=== PATIENT | female | born 1950 | race Caucasian/White ===

== ENCOUNTER 2017-10-13 12:09 | Emergency (ER) | payer MEDICARE, MEDICAID ==
[~2017-10-13] VITALS: Ht 167.6 cm; Wt 71.7 kg
[~2017-10-13 12:09] MED LIST: ADVAIR HFA 1112 UNIT INH; ALPRAZOLAM 0.50.5 M1 PO; ALPRAZOLAM PO; AMBIEN 10 MG TA10 MG PO; AVELOX 400 MG400 M1 PO; BACTRIM DS TAB1 EACH PO; CARAFATE 1 GM TA1 G1 PO; CHLORPROMAZINE10 M1 PO; CHLORPROMAZINE100 MG PO; CYMBALTA60 MG PO; DUONEB 2.5-0.5 M3 ML; DUONEB 2.5-0.5 M3 ML INH; EFFEXOR XR150 MG PO; EFFEXOR XR75 MG PO; ESZOPICLONE3 MG PO; LEVAQUIN 500 M500 M2 PO; MOBIC7.5 MG PO; NORCO 10-325 T1 EACH PO; OXCARBAZEPINE600 MG PO; PAIN & FEVER325 MG PO; PREDNISONE 10 M10 M1; PROMETHAZINE HC25 M1 PO; PROTONIX40 M2 PO; PROZAC20 MG PO; PULMICORT0.5 MG/21 INH; PYRIDIUM200 M1 PO; SEROQUEL 50 MG50 MG PO; STERAPRED5 MG; TRAZODONE 150150 M1 PO; TYLENOL EX-STR500 M2 PO; UNKNOWN PSYCH MED; XANAX XR1 MG PO; XANAX1 MG PO; ZOFRAN4 MG PO
[2017-10-13] MEDS ORDERED: XANAX1 MG PO ×2 (12:26)
[2017-10-13] MEDS ORDERED: SEROQUEL 50 MG50 M1 PO (12:29)
[2017-10-13] MEDS ORDERED: LUNESTA3 MG PO (12:30)
[2017-10-13] MEDS ORDERED: FEOSOL325 M1 PO (12:31)
[2017-10-13] MEDS ORDERED: ZANTAC25 MG/1 ML PO (12:31)
[2017-10-13] MEDS ORDERED: ONDANSETRON HCL4 M2 PO (12:32)
[2017-10-13] MEDS ORDERED: LYRICA 75 MG CA75 MG PO (12:32)
[2017-10-13] MEDS ORDERED: AZITHROMYCIN 2250 MG PO (14:18)
[2017-10-13 14:39] VITALS: BP 144/57
== END 2017-10-13 14:40 | disposition home or self-care (01) ==
LOC: M.ERS 12:09
DX: S01.91XA Laceration without foreign body of unspecified part of head, initial encounter (principal); S20.212A Contusion of left front wall of thorax, initial encounter; J40 Bronchitis, not specified as acute or chronic; J44.9 Chronic obstructive pulmonary disease, unspecified; F32.9 Major depressive disorder, single episode, unspecified; F41.9 Anxiety disorder, unspecified; G40.909 Epilepsy, unspecified, not intractable, without status epilepticus; Z87.440 Personal history of urinary (tract) infections; Z86.59 Personal history of other mental and behavioral disorders; Z87.19 Personal history of other diseases of the digestive system; Z98.890 Other specified postprocedural states; Z88.5 Allergy status to narcotic agent; Z88.8 Allergy status to other drugs, medicaments and biological substances; Z87.891 Personal history of nicotine dependence; W18.39XA Other fall on same level, initial encounter; Y93.89 Activity, other specified; Y92.128 Other place in nursing home as the place of occurrence of the external cause; Y99.8 Other external cause status

== ENCOUNTER 2017-10-18 17:08 | Inpatient (IN) | payer MEDICARE, MEDICAID ==
[~2017-10-18] VITALS: Ht 165.1 cm; Wt 63.5 kg
[2017-10-18 17:08] VITALS: BP 153/70
[~2017-10-18 17:08] MED LIST changes: +AZITHROMYCIN 2250 MG PO; +FEOSOL325 M1 PO; +LUNESTA3 MG PO; +LYRICA 75 MG CA75 MG PO; +ONDANSETRON HCL4 M2 PO; +SEROQUEL 50 MG50 M1 PO; +ZANTAC25 MG/1 ML PO
[2017-10-18] MEDS ORDERED: SEROQUEL 50 MG50 MG PO (17:23)
[2017-10-18 17:44] LABS: ABSOLUTE EOSINOPHILS 0.3 thou/uL (0.0-0.7); ABSOLUTE LYMPHOCYTES 0.8 thou/uL (0.8-5.3); ABSOLUTE MONOCYTES 0.3 thou/uL (0.0-1.2); BASOPHILS 0.1 %; EOSINOPHILS 8.6 %; HEMATOCRIT 32.6 % (37.0-47.0); HEMOGLOBIN 11.1 gm/dL (12.0-15.0); LYMPHOCYTES 23.4 %; MCH 32.1 pg (26.0-34.0); MCHC 34.1 g/dL (28.0-37.0); MCV 94.3 fL (80.0-100.0); MONOCYTES 9.8 %; MPV 6.6 fl. (7.2-11.1); NUCLEATED RBCS 0 /100WBC; PLATELET COUNT* 218 thou/uL (150-400); POLYS 58.1 %; RBC 3.46 mil/uL (4.20-5.00); RDW-CV 12.3 % (10.5-14.5); WBC 3.4 thou/uL (4.0-11.0)
[2017-10-18 17:54] LABS: ANION GAP 6 mmol/L (7-16); BUN 12 mg/dL (7-18); CALCIUM 8.6 mg/dL (8.5-10.1); CHLORIDE 101 mmol/L (98-107); CO2 32 mmol/L (21-32); CREATININE 0.7 mg/dL (0.6-1.3); GLUCOSE 87 mg/dL (70-99); SODIUM 139 mmol/L (136-145)
[2017-10-18 18:05] LABS: ALBUMIN 3.1 g/dL (3.4-5.0); ALKALINE PHOSPHATASE 99 U/L (46-116); NT-PRO BRAIN NAT PEPTIDE 185 pg/mL (<300); SGOT 17 U/L (15-37); SGPT 22 U/L (30-65); TOTAL BILIRUBIN 0.2 mg/dL (<0.1-1.0); TOTAL PROTEIN 6.7 g/dL (6.4-8.2); TROPONIN-I LEVEL <0.06 ng/mL (<0.06)
[2017-10-18 19:02] LABS: BE 1.4 mmol/L (-2 to +3); HCO3 26.2 mmol/L (22.0-26.0); PCO2 42.4 mmHg (35.0-45.0); PO2 96.1 mmHg (75.0-100.0); pH 7.409 (7.340-7.450)
[2017-10-18 20:16] VITALS: BP 142/73
[2017-10-18 20:20] VITALS: BP 154/75
[2017-10-18 20:23] LABS: INFLUENZA A ANTIGEN None Detected (None Detect); INFLUENZA B ANTIGEN None Detected (None Detect)
[2017-10-19 04:51] LABS: HEMATOCRIT 31.2 % (37.0-47.0); HEMOGLOBIN 10.6 gm/dL (12.0-15.0); MCV 94.2 fL (80.0-100.0); MPV 7.1 fl. (7.2-11.1); RBC 3.31 mil/uL (4.20-5.00); RDW-CV 11.7 % (10.5-14.5); WBC 3.1 thou/uL (4.0-11.0)
[2017-10-19 04:54] LABS: BE -0.8 mmol/L (-2 to +3); HCO3 24.5 mmol/L (22.0-26.0); PCO2 43.1 mmHg (35.0-45.0); PO2 107.2 mmHg (75.0-100.0); pH 7.373 (7.340-7.450)
[2017-10-19 05:16] LABS: ALBUMIN 2.9 g/dL (3.4-5.0); ALKALINE PHOSPHATASE 94 U/L (46-116); ANION GAP 11 mmol/L (7-16); BUN 12 mg/dL (7-18); CALCIUM 8.4 mg/dL (8.5-10.1); CHLORIDE 103 mmol/L (98-107); CO2 24 mmol/L (21-32); CREATININE 0.7 mg/dL (0.6-1.3); GLUCOSE 163 mg/dL (70-99); MAGNESIUM 1.7 mg/dL (1.8-2.4); POTASSIUM 4.2 mmol/L (3.5-5.1); SGOT 16 U/L (15-37); SGPT 20 U/L (30-65); SODIUM 138 mmol/L (136-145)
[2017-10-19 05:28] LABS: TOTAL BILIRUBIN < 0.1 mg/dL (<0.1-1.0)
[2017-10-19 08:11] VITALS: BP 138/66
[2017-10-19 13:05] VITALS: BP 137/60
--- NOTE | 2017-10-19 13:47 | EKG ---
[place] [address] ELECTROCARDIOGRAM REPORT Name: PHYLLIS YANES Room: [address] ADM IN .R.#: [id number] Admission: 10/18/17 Attend Phys: Bethanie Billings MD Discharge: Date of : 46 Report #: [id number] THIS REPORT FOR: //name// [facility] ED Test Date: 2017-10-18 Test Time: 17:58:56 Pat Name: PHYLLIS YANES Department: Room: [facility] Gender: F Seat Joiner: Ammy TOBIN : 1950 Requested By: Vineet Lopez Order Number: [id number] MD: Jakob Kim Measurements Intervals [place] Rate: 74 P: 51 [place]: 177 QRS: -11 QRSD: 86 T: 20 QT: 381 QTc: 423 Interpretive Statements Sinus rhythm Consider anterior infarct No previous ECG available for comparison Electronically Signed On 10-19-2017 13:47:13 MANAGER INPATIENT by Jakob Kim [email or web address] <ELECTRONICALLY SIGNED> By: Jakob Kim MD, [facility] 10/19/17 1347 1758 57 Jakob Kim MD, [facility]ACC /EPI
--- NOTE | 2017-10-19 13:53 | EKG ---
[place] [address] ELECTROCARDIOGRAM REPORT Name: SHAYLAHayleePHYLLIS Domo Room: [address] ADM IN .R.#: [id number] Admission: 10/18/17 Attend Phys: Bethanie Billings MD Discharge: Date of : 46 Report #: [id number] THIS REPORT FOR: //name// [facility] Test Date: 2017-10-19 Test Time: 11:03:48 Pat Name: PHYLLIS YANES Department: Room: [address] Gender: F Manager Corporate: 27 : 1950 Requested By: Bethanie Billings Order Number: [id number] Rehana MD: Jakob Kim Measurements Intervals [place] Rate: 97 P: 60 [place]: 194 QRS: -12 QRSD: 86 T: 19 QT: 351 QTc: 446 Interpretive Statements Sinus rhythm LVH by voltage No previous ECG available for comparison Electronically Signed On 10-19-2017 13:53:12 MANAGER PART by Jakob Kim [email or web address] <ELECTRONICALLY SIGNED> By: Jakob Kim MD, [facility] 10/19/17 1353 1103 1103 Jakob Kim MD, [facility] /EPI
[2017-10-19 17:25] VITALS: BP 151/73
[2017-10-19 20:30] VITALS: BP 158/76
[2017-10-20] VITALS: BP 170/73
[2017-10-20 06:19] LABS: HEMATOCRIT 31.2 % (37.0-47.0); HEMOGLOBIN 10.9 gm/dL (12.0-15.0); MCHC 34.7 g/dL (28.0-37.0); MCV 94.9 fL (80.0-100.0); MPV 7.2 fl. (7.2-11.1); NUCLEATED RBCS 0 /100WBC; PLATELET COUNT* 244 thou/uL (150-400); RBC 3.29 mil/uL (4.20-5.00); RDW-CV 12.2 % (10.5-14.5); WBC 7.2 thou/uL (4.0-11.0)
[2017-10-20 06:33] LABS: CALCIUM 8.8 mg/dL (8.5-10.1); CREATININE 0.7 mg/dL (0.6-1.3); MAGNESIUM 2.2 mg/dL (1.8-2.4); POTASSIUM 4.1 mmol/L (3.5-5.1); TOTAL BILIRUBIN 0.2 mg/dL (<0.1-1.0); TOTAL PROTEIN 6.6 g/dL (6.4-8.2)
[2017-10-20 07:30] LABS: ABSOLUTE LYMPHOCYTES 0.3 thou/uL (0.8-5.3); ABSOLUTE MONOCYTES 0.1 thou/uL (0.0-1.2); ABSOLUTE NEUTROPHILS 6.8 thou/uL (1.6-8.1); PLATELET ESTIMATE ADEQUATE
[2017-10-20 09:06] VITALS: BP 169/89
[2017-10-20 15:45] VITALS: BP 180/84
[2017-10-20 18:17] LABS: URINE BILIRUBIN NEGATIVE (Negative); URINE BLOOD TRACE (Negative); URINE CLARITY CLEAR; URINE COLOR YELLOW; URINE GLUCOSE-RANDOM NEGATIVE (Negative); URINE KETONES NEGATIVE (Negative); URINE LEUKOCYTES-REFLEX NEGATIVE (Negative); URINE NITRITE-REFLEX NEGATIVE (Negative); URINE PROTEIN NEGATIVE (Negative); URINE UROBILINOGEN 0.2 E.U./dl (0.2-1.0)
[2017-10-20 20:10] VITALS: BP 171/74
[2017-10-21] VITALS: BP 174/73
[2017-10-21 04:00] VITALS: BP 176/91
[2017-10-21 09:45] VITALS: BP 170/82
[2017-10-21 19:03] VITALS: BP 148/79
[2017-10-21 20:05] VITALS: BP 177/84
[2017-10-22] VITALS: BP 135/78
[2017-10-22 09:54] VITALS: BP 173/79
[2017-10-22 17:00] VITALS: BP 141/69
[2017-10-23 11:12] VITALS: BP 137/72
[2017-10-23 16:00] VITALS: BP 137/61
[2017-10-23 23:37] VITALS: BP 124/55
[2017-10-24 02:06] LABS: ADENOVIRUS Negative (Negative); INFLUENZA A Negative (Negative); INFLUENZA B Negative (Negative); METAPNEUMOVIRUS Negative (Negative); PARAINFLUENZA 1 Negative (Negative); PARAINFLUENZA 2 Negative (Negative); PARAINFLUENZA 3 Negative (Negative); RHINOVIRUS Negative (Negative); RSV A Negative (Negative); RSV B Negative (Negative)
[2017-10-24 07:55] VITALS: BP 169/93
[2017-10-24 16:00] VITALS: BP 149/64
[2017-10-25 00:32] VITALS: BP 163/65
[2017-10-25 07:30] VITALS: BP 166/82
[2017-10-25] MEDS ORDERED: LEVAQUIN 500 M500 M2 PO (12:16)
[2017-10-25] MEDS ORDERED: NORCO 10-325 T1 EACH PO (12:16)
[2017-10-25] MEDS ORDERED: XANAX1 MG PO ×2 (12:16)
[2017-10-25] MEDS ORDERED: AMLODIPINE BESYL5 M1 PO (12:16)
[2017-10-25] MEDS ORDERED: LIDOPATCH1 EACH TOP (12:16)
[2017-10-25] MEDS ORDERED: PREDNISONE 20 M20 MG PO (12:18)
[2017-10-25 13:36] VITALS: BP 166/82
--- NOTE | 2017-10-25 16:13 | CON ---
[address] [address] CONSULTATION Name: PHYLLIS YANES Room: [address] IN .R.#: [id number] Admission: 10/18/17 Attend Phys: Bethanie Billings MD Discharge: Date of : 46 Report #: [id number] THIS REPORT FOR: //name// CC: Bethanie Da Silva DATE OF SERVICE: 10/21/2017 INDICATION FOR CONSULT: Abdominal pain. The patient also has anemia of iron deficiency. HISTORY OF PRESENT ILLNESS: This is a 67-year-old female who was admitted to hospital with diagnosis of pneumonia. The patient reports that she has been having abdominal pain, which is periumbilical and radiates to the back. She was constipated until recently when she started having loose stools. Since hospitalization she has been started on 3 different antibiotics and blood test results revealed that she has iron-deficiency anemia. She does not believe that she has ever had any endoscopic evaluation in the past. The patient also has a small kidney stone and trace of blood in her urine. PAST MEDICAL HISTORY: Significant for history of anxiety, iron-deficiency anemia, GERD, depression, COPD, back and knee surgeries, hysterectomy, appendectomy, benign breast biopsies, emphysema, UTI and gastritis. ALLERGIES: SIGNIFICANT TO MORPHINE, CODEINE AND ____. MEDICATIONS: Please refer to hospital MAR. SOCIAL HISTORY: The patient lives in a assisted facility and is visited by her son routinely. She reports that she used to smoke until 3 weeks ago and used to smoke about a pack and a half, but has quit since. She denies use of alcohol. FAMILY HISTORY: Noncontributory. LABORATORIES: Reveal sodium of 138 and potassium 4.1. BUN is 15 and creatinine 0.7. Glucose 138. AST is 22, ALT 33 and alk phos 94. Iron saturation is 3%. WBC 7.2, hemoglobin 10.9 and platelet is 244. IMAGING: Abdominal ultrasound and CT were obtained. Ultrasound shows normal gallbladder with mild dilation of the common bile duct to 9 mm. This was also shown in the CT. ASSESSMENT AND PLAN: The patient with pneumonia who presents to hospital and currently on antibiotics. She also has chronic constipation, [place] [address] CONSULTATION Name: PHYLLIS YANES Room: [address] IN [facility]#: [id number] Admission: 10/18/17 Attend Phys: Bethanie Billings MD Discharge: Date of : 46 Report #: [id number] having diarrhea since yesterday. We will monitor the diarrhea, and if persists, we will check for C. diff. In reference to her iron-deficiency anemia, she needs to have upper and lower endoscopy either prior to discharge or shortly after that. In reference to her 9 mm common bile duct dilatation, we will recommend either an MRI or an US. We will consider this as outpatient. <ELECTRONICALLY SIGNED> By: Lilly Dc MD 10/25/17 1613 1110 0004Lilly Dc MD /nt
== END 2017-10-25 16:45 | disposition home health service (06) | DRG 177 ==
LOC: M.ERS 17:08 → M.3W 18:30 → M.TBA-ER 18:30 → M.3W 20:24
PROVIDERS: Emergency Medicine Emergency Medical Services; ADMIT Internal Medicine
DX: J15.6 Pneumonia due to other Gram-negative bacteria (principal); J96.21 Acute and chronic respiratory failure with hypoxia; J44.0 Chronic obstructive pulmonary disease with (acute) lower respiratory infection; R65.10 Systemic inflammatory response syndrome (SIRS) of non-infectious origin without acute organ dysfunction; J44.1 Chronic obstructive pulmonary disease with (acute) exacerbation; I10 Essential (primary) hypertension; F32.9 Major depressive disorder, single episode, unspecified; F20.9 Schizophrenia, unspecified; G40.909 Epilepsy, unspecified, not intractable, without status epilepticus; R07.81 Pleurodynia; K57.90 Diverticulosis of intestine, part unspecified, without perforation or abscess without bleeding; F41.9 Anxiety disorder, unspecified; K59.09 Other constipation; J40 Bronchitis, not specified as acute or chronic; Z88.5 Allergy status to narcotic agent; Z88.8 Allergy status to other drugs, medicaments and biological substances; Z79.899 Other long term (current) drug therapy; Z87.891 Personal history of nicotine dependence

== ENCOUNTER 2018-02-24 10:27 | Inpatient (IN) | payer MEDICARE, MEDICAID ==
[2018-02-24] VITALS (13 sets, daily range): BP systolic 93–137; BP diastolic 43–103
[~2018-02-24] VITALS: Ht 165.1 cm; Wt 77.1 kg
[~2018-02-24 10:27] MED LIST changes: +AMLODIPINE BESYL5 M1 PO; +LIDOPATCH1 EACH TOP; +PREDNISONE 20 M20 MG PO
[2018-02-24] MEDS ORDERED: COLACE100 MG PO (10:50)
[2018-02-24] MEDS ORDERED: LYRICA 75 MG CA75 MG PO (10:51)
[2018-02-24] MEDS ORDERED: MUCINEX600 MG PO (10:51)
[2018-02-24 10:52] LABS: HEMATOCRIT 38.2 % (37.0-47.0); HEMOGLOBIN 12.7 gm/dL (12.0-15.0); MCH 31.3 pg (26.0-34.0); MCHC 33.1 g/dL (28.0-37.0); MCV 94.7 fL (80.0-100.0); MPV 7.3 fl. (7.2-11.1); NUCLEATED RBCS 0 /100WBC; PLATELET COUNT* 255 thou/uL (150-400); RBC 4.04 mil/uL (4.20-5.00); RDW-CV 12.5 % (10.5-14.5); WBC 23.8 thou/uL (4.0-11.0)
[2018-02-24] MEDS ORDERED: MILK OF MA2400 MG/10 PO (10:52)
[2018-02-24] MEDS ORDERED: MINTOX SUSPENS355 ML PO (10:53)
[2018-02-24] MEDS ORDERED: BENTYL 10 MG CA10 M1 PO (10:53)
[2018-02-24 11:02] LABS: INR 1.2
[2018-02-24 11:19] LABS: ABSOLUTE MONOCYTES 1.4 thou/uL (0.0-1.2); ABSOLUTE NEUTROPHILS 21.4 thou/uL (1.6-8.1); PLATELET ESTIMATE ADEQUATE
[2018-02-24 11:32] LABS: URINE BLOOD 3+ (Negative); URINE CLARITY CLEAR; URINE COLOR STRAW; URINE GLUCOSE-RANDOM NEGATIVE (Negative); URINE KETONES 1+ (Negative); URINE LEUKOCYTES-REFLEX NEGATIVE (Negative); URINE NITRITE-REFLEX NEGATIVE (Negative); URINE PROTEIN 1+ (Negative); URINE SPECIFIC GRAVITY 1.025 (1.005-1.030); URINE UROBILINOGEN 0.2 E.U./dl (0.2-1.0)
[2018-02-24 11:33] LABS: URINE BILIRUBIN 1+ (Negative)
[2018-02-24 11:36] LABS: ICTOTEST (BILI CONFIRMATORY) Negative (Negative)
[2018-02-24 11:42] LABS: MUCUS >6 Heavy strn/LPF (None Seen)
[2018-02-24 11:43] LABS: HYALINE CASTS 4-10 Moderate /LPF (None Seen); SQUAMOUS 4-10 Moderate /LPF (0-3)
[2018-02-24 11:44] LABS: CRYSTALS None Seen /LPF (None Seen); URINE RBC 3-10 Few /HPF (0-2); URINE WBC-REFLEX 6-15 Few /HPF (0-5)
[2018-02-24 16:06] LABS: APTT 42.6 Seconds (25.0-31.3); INR 1.3; PROTIME 12.4 Seconds (9.20-11.50)
[2018-02-24 16:11] LABS: ALBUMIN 2.2 g/dL (3.4-5.0); CALCIUM 7.3 mg/dL (8.5-10.1); CREATININE 0.7 mg/dL (0.6-1.3); MAGNESIUM 1.8 mg/dL (1.8-2.4); PHOSPHORUS* 2.7 mg/dL (2.5-4.9); POTASSIUM 3.4 mmol/L (3.5-5.1); TOTAL BILIRUBIN 0.3 mg/dL (<0.1-1.0); TOTAL PROTEIN 5.5 g/dL (6.4-8.2)
--- NOTE | 2018-02-24 19:33 | NUR ---
PT ARRIVED FROM ED AT 1320 VIA CART FROM ED. PT IS ALERT TO SELF ONLY AND VERY CONFUSED. ASSESSMENT CHARTED. VSS. SEPSIS SCREEN NEGATIVE AT THIS TIME. DPOA JASON CONTACTED AND REQUESTED THAT PATIENT BE A FULL CODE UNTIL HE IS ABLE TO TALK WITH THE PATIENT. NO COMPLAINTS OF NAUSEA/VOMITTING. PT ATE 25% OF DINNER AND KEEPS VOICING THAT SHE IS TIRED. BED ALARM ON PATIENT IS IMPULSIVE.
[2018-02-25] VITALS (16 sets, daily range): BP systolic 105–146; BP diastolic 47–654
[2018-02-25 03:49] LABS: HEMATOCRIT 33.4 % (37.0-47.0); HEMOGLOBIN 11.3 gm/dL (12.0-15.0)
[2018-02-25 03:50] LABS: ABSOLUTE LYMPHOCYTES 0.4 thou/uL (0.8-5.3); ABSOLUTE MONOCYTES 1.2 thou/uL (0.0-1.2); ABSOLUTE NEUTROPHILS 19.4 thou/uL (1.6-8.1); BASOPHILS 0.2 %; LYMPHOCYTES 2.1 %; MCH 31.8 pg (26.0-34.0); MCHC 33.7 g/dL (28.0-37.0); MCV 94.2 fL (80.0-100.0); MONOCYTES 5.6 %; MPV 7.3 fl. (7.2-11.1); NUCLEATED RBCS 0 /100WBC; PLATELET COUNT* 209 thou/uL (150-400); POLYS 92.1 %; RBC 3.54 mil/uL (4.20-5.00); RDW-CV 13.1 % (10.5-14.5)
[2018-02-25 04:07] LABS: CREATININE 0.6 mg/dL (0.6-1.3); POTASSIUM 3.9 mmol/L (3.5-5.1)
--- NOTE | 2018-02-25 14:42 | EKG ---
[place] [address] ELECTROCARDIOGRAM REPORT Name: PHYLLIS YANES Room: [address] IN [facility]#: [id number] Admission: 02/24/18 Attend Phys: Shine Barbosa Discharge: Date of : 46 Report #: [id number] THIS REPORT FOR: //name// [facility] ED Test Date: 2018-02-24 Test Time: 10:34:46 Pat Name: PHYLLIS YANES Department: Room: Gender: F Lease Picker: [place] : 1950 Requested By: Lakia Hussein Order Number: [id number] MD: Roberth Brian Measurements Intervals [place] Rate: 93 P: -6 [place]: 149 QRS: -18 QRSD: 74 T: 8 QT: 446 QTc: 555 Interpretive Statements Sinus rhythm Inferior infarct, old Prolonged QT interval nonspecific t wave changes Baseline wander in lead(s) V1 Compared to ECG 10/19/2017 11:03:48 Prolonged QT interval now present Left ventricular hypertrophy no longer present Electronically Signed On 02-25-2018 14:41:54 CDT by Roberth Brian [email or web address] <ELECTRONICALLY SIGNED> By: Roberth Brian MD, [facility] 02/25/18 1441 1034 1034 Roberth Brian MD, [facility] /EPI
--- NOTE | 2018-02-25 18:59 | NUR ---
PT ALERT TO SELF AND PLACE ONLY. ASSESSMENT CHARTED. VSS. FECAL MANAGEMENT SYSTEM INITIATED DUE TO FREQUENT LIQUID STOOL AND SKIN BREAK DOWN. PT COMPLAINS OF ABDOMINAL PAIN AND NAUSEA INTERMITTENTLY ALL DAY. ABDOMINAL ULTRASOUND DONE. PT UP TO BEDSIDE COMMODE AND WAS VERY UNSTEADY AND UNABLE TO HOLD HER OWN WEIGHT UP. PT DID NOT EAT ANYTHING TODAY. SHE HAD 3 120 ML PEPSI'S BUT OTHERWISE SAID SHE DOES NOT HAVE AN APPETITE.
[2018-02-26] VITALS (24 sets, daily range): BP systolic 94–126; BP diastolic 50–84
[2018-02-26 04:06] LABS: HEMATOCRIT 46.2 % (37.0-47.0); MCH 30.9 pg (26.0-34.0); MCHC 32.5 g/dL (28.0-37.0); MCV 95.2 fL (80.0-100.0); MPV 7.8 fl. (7.2-11.1); NUCLEATED RBCS 0 /100WBC; PLATELET COUNT* 265 thou/uL (150-400); RBC 4.86 mil/uL (4.20-5.00); RDW-CV 13.4 % (10.5-14.5)
[2018-02-26 04:23] LABS: CALCIUM 7.6 mg/dL (8.5-10.1); CREATININE 1.1 mg/dL (0.6-1.3); POTASSIUM 4.1 mmol/L (3.5-5.1)
[2018-02-26 04:43] LABS: WBC 40.1 thou/uL (4.0-11.0)
[2018-02-26 08:03] LABS: ABSOLUTE MONOCYTES 0.4 thou/uL (0.0-1.2); ABSOLUTE NEUTROPHILS 37.7 thou/uL (1.6-8.1)
[2018-02-26 08:04] LABS: PLATELET ESTIMATE ADEQUATE
[2018-02-26 08:07] LABS: MACROCYTES Occasional; MICROCYTES Occasional
--- NOTE | 2018-02-26 23:31 | NUR ---
paged dr albarran and reported sustained heart rate in 140's. reported respirations in 30's and oral temp 98.4. reported cvp at 5, urine output for day shift 150. recieved orders for stat lactic acid, fluid bolus and EKG.
[2018-02-27] VITALS (36 sets, daily range): BP systolic 47–212; BP diastolic 11–155
--- NOTE | 2018-02-27 00:54 | NUR ---
REPORTED ELEVATED LACTIC ACID TO DR JIM. RECIEVED ADDITIONAL ORDERS.
--- NOTE | 2018-02-27 03:46 | NUR ---
PAGED DR JIM AND REPORTED SUSTAINED HEART RATE 140-142, BLOOD PRESSURE 109/75, RESPIRATIONS 33, ORAL TEMP 98.4, O2 SAT 96 - 97%. REPORTED TOTAL URINE OUTPUT 50 ML'S SINCE SHIFT CHANGE. NO ORDERS RECIEVED.
[2018-02-27 04:41] LABS: CALCIUM 7.6 mg/dL (8.5-10.1); POTASSIUM 5.3 mmol/L (3.5-5.1)
[2018-02-27 04:49] LABS: CREATININE 2.1 mg/dL (0.6-1.3)
--- NOTE | 2018-02-27 05:29 | NUR ---
PT'S BLOOD PRESSURE 61/25. PT COLD, CLAMY AND DIAPHORETIC. PT MINIMALLY RESPONSIVE. UNABLE TO OBTAIN O2 SAT, SENSOR CHANGED X3. STILL UNABLE TO GET WAVE FORM OR SAT. PT PLACING PT ON BIPAP AT THIS TIME AND ONTAINING ABG. PT'S SON NOTIFIED AND EN ROUTE TO HOSPITAL.
[2018-02-27 06:07] LABS: BE -15.5 mmol/L (-2 to +3); PCO2 20.6 mmHg (35.0-45.0)
[2018-02-27 06:08] LABS: HCO3 8.8 mmol/L (22.0-26.0); PO2 158.8 mmHg (75.0-100.0)
--- NOTE | 2018-02-27 06:38 | NUR ---
REPORTED CRITICAL SERUM CO2 AND ABG RESULTS. PT PLACED ON BIPAP PER RT. RECIEVED ORDERS TO GIVE 1 AMP SODIUM BICARB AND CHANGE IV FLUIDS. REPORTED CORE TEMP. RECIEVED ORDERS FOR TYLENOL SUPPOSITORY.
--- NOTE | 2018-02-27 10:20 | NUR ---
PT KNOWN TO CASE MGT FROM PREVIOUS ADMISSION. PT IS FROM [facility]. PT DOING POORLY THIS MORNING, SON IS HERE AND TALKING WITH THE DOCTOR. PT CURRENTLY ON BIPAP, SON DOES WANT PT INTUBATED IF NEEDED. DR. BOB AND NURSING AWARE OF SON'S DECISION ABOUT INTUBATION.
--- NOTE | 2018-02-27 11:30 | NUR ---
PATIENT WAS INTUABTED PER FAMILY REQUEST AND DR RECOMMENDATIONS, NOT WAKING UP TO PROTECT AIRWAY. SUCCESSFUL INTUBATION, UNABLE TO PLACE AN ARTERIAL LINE AT THIS TIME, MANY ATTEMPTS BY ANESTHIA, SURGERY CALLED TO SEE IF THEY CAN PLACE. PATIENT NOT SEDATED AND UNRESPONSIVE AT THIS TIME. PRESSORS STARTED ALONG WITH FLUID BOLUSES PER DR ORDERS. FAMILY UPDATED. WILL CONTINUE TO MONITOR.
[2018-02-27 13:15] LABS: ALBUMIN 1.7 g/dL (3.4-5.0); DIRECT BILIRUBIN 0.1 mg/dL (<0.1-0.3); TOTAL BILIRUBIN 0.2 mg/dL (<0.1-1.0); TOTAL PROTEIN 4.4 g/dL (6.4-8.2)
[2018-02-27 13:54] LABS: CALCIUM 7.5 mg/dL (8.5-10.1); CREATININE 2.1 mg/dL (0.6-1.3); POTASSIUM 5.8 mmol/L (3.5-5.1)
--- NOTE | 2018-02-27 14:01 | EKG ---
[place] [address] ELECTROCARDIOGRAM REPORT Name: PHYLLIS YANES Room: [address] ADM IN M.R.#: [id number] Admission: 02/24/18 Attend Phys: Shine Barbosa Discharge: Date of : 46 Report #: [id number] THIS REPORT FOR: //name// [facility] Test Date: 2018-02-26 Test Time: 23:37:48 Pat Name: PHYLLIS YANES Department: Room: [address] Gender: F Pole Lift Operator: JONNA : 1950 Requested By: Zana Bustamante Order Number: [id number] Rehana MD: Oscar Lynch Measurements Intervals [place] Rate: 129 P: 22 [place]: 130 QRS: -28 QRSD: 76 T: 47 QT: 281 QTc: 412 Interpretive Statements Sinus tachycardia Borderline left axis deviation Anterior infarct, Baseline wander in lead(s) V4,V5,V6 Compared to ECG 02/24/2018 10:34:46 Q waves now present ST (T wave) deviation now present Sinus rate has increased Prolonged QT interval no longer present T-wave abnormality no longer present Myocardial infarct finding still present Electronically Signed On 02-27-2018 14:01:20 CDT by Oscar Lynch [email or web address] <ELECTRONICALLY SIGNED> By: Oscar Lynch MD, [facility] 02/27/18 1401 2337 2337 Oscar Lynch MD, [facility] /EPI
--- NOTE | 2018-02-27 14:02 | EKG ---
[place] [address] ELECTROCARDIOGRAM REPORT Name: PHYLLIS YANES Room: [address] ADM IN M.R.#: [id number] Admission: 02/24/18 Attend Phys: Shine Barbosa Discharge: Date of : 46 Report #: [id number] THIS REPORT FOR: //name// [facility] Test Date: 2018-02-26 Test Time: 23:39:18 Pat Name: PHYLLIS YANES Department: Room: [address] Gender: F Population Health Manager: JONNA : 1950 Requested By: Amanuel Stevenson Order Number: [id number] Rehana MD: Oscar Lynch Measurements Intervals [place] Rate: 128 P: 29 [place]: 137 QRS: -36 QRSD: 72 T: 34 QT: 295 QTc: 431 Interpretive Statements Sinus tachycardia Inferior infarct, old Abnormal lateral Q waves Anterior infarct, old Compared to ECG 02/24/2018 10:34:46 Q waves now present Sinus rate has increased Prolonged QT interval no longer present T-wave abnormality no longer present Myocardial infarct finding still present Electronically Signed On 02-27-2018 14:01:51 CDT by Oscar Lynch [email or web address] <ELECTRONICALLY SIGNED> By: Oscar Lynch MD, [facility] 02/27/18 1401 2339 2339 Oscar Lynch MD, [facility] /EPI
--- NOTE | 2018-02-27 14:10 | EKG ---
[place] [address] ELECTROCARDIOGRAM REPORT Name: PHYLLIS YANES Room: [address] ADM IN M.R.#: [id number] Admission: 02/24/18 Attend Phys: Shine Barbosa Discharge: Date of : 46 Report #: [id number] THIS REPORT FOR: //name// [facility] Test Date: 2018-02-27 Test Time: 11:38:33 Pat Name: PHYLLIS YANES Department: Room: [address] Gender: F Integration Manager: : 1950 Requested By: Amanuel Stevenson Order Number: [id number] Rehana MD: Osacr Lynch Measurements Intervals [place] Rate: 101 P: 39 [place]: 146 QRS: -35 QRSD: 69 T: 31 QT: 295 QTc: 383 Interpretive Statements Sinus tachycardia Paired atrial premature complexes Inferior infarct, old Compared to ECG 02/24/2018 10:34 Sinus rhythm persists with pac's Prolonged QT interval no longer present T-wave abnormality no longer present Myocardial infarct finding still present Electronically Signed On 02-27-2018 14:10:43 CDT by Oscar Lynch [email or web address] <ELECTRONICALLY SIGNED> By: Oscar Lynch MD, [facility] 02/27/18 1410 1138 1138 Oscar Lynch MD, [facility] /EPI
--- NOTE | 2018-02-27 14:11 | EKG ---
[place] [address] ELECTROCARDIOGRAM REPORT Name: PHYLLIS YANES Room: [address] ADM IN M.R.#: [id number] Admission: 02/24/18 Attend Phys: Shine Barbosa Discharge: Date of : 46 Report #: [id number] THIS REPORT FOR: //name// [facility] Test Date: 2018-02-27 Test Time: 11:58:29 Pat Name: PHYLLIS YANES Department: Room: [address] Gender: F Primary Clinician: : 1950 Requested By: Sarah Hannah Order Number: [id number] Rehana MD: Oscar Lynch Measurements Intervals [place] Rate: 154 P: [place]: QRS: 10 QRSD: 75 T: 37 QT: 308 QTc: 493 Interpretive Statements Atrial flutter with rapid V-rate Inferior infarct, old Lateral leads are also involved Compared to ECG 02/24/2018 10:34:46 Sinus rhythm no longer present Prolonged QT interval no longer present T-wave abnormality no longer present Myocardial infarct finding still present Electronically Signed On 02-27-2018 14:11:34 CDT by Oscar Lynch [email or web address] <ELECTRONICALLY SIGNED> By: Oscar Lynch MD, [facility] 02/27/18 1411 1158 1158 Oscar Lynch MD, [facility] /EPI
[2018-02-27 14:17] LABS: ALBUMIN 0.9 g/dL (3.4-5.0); TOTAL BILIRUBIN 0.3 mg/dL (<0.1-1.0); TOTAL PROTEIN 3.6 g/dL (6.4-8.2)
--- NOTE | 2018-02-27 15:00 | NUR ---
CALLED LAB RESULTS TO DR MARTINEZ AND HE ORDERED CRRT AND TEMP DIALYSIS CATH TO BE PLACED AT THIS TIME. UPDATED FAMILY AND THEY WOULD LIKE TO CONTINUE WITH CARE. MAXED ON 3 PRESSORS. ARTERIAL LINE AND TEMP DIALYSIS LINE PLACED BY DR FRYE AT BEDSIDE. DIALYSIS NURSE ON HER WAY TO START PATIENT ON CRRT.
[2018-02-27 16:01] LABS: BE -20.1 mmol/L (-2 to +3); PCO2 25.5 mmHg (35.0-45.0); PO2 71.3 mmHg (75.0-100.0)
[2018-02-27 16:02] LABS: pH 7.106 (7.340-7.450)
[2018-02-27 16:03] LABS: HCO3 7.8 mmol/L (22.0-26.0)
--- NOTE | 2018-02-27 16:15 | NUR ---
P.T. ORDERS RECEIVED 02/26/18. PT WITH DECLINING STATUS TODAY. NSG RECOMMENDED DEFER P.T. EVAL. WILL CHECK AGAIN TOMORROW.
--- NOTE | 2018-02-27 17:30 | NUR ---
CRRT STARTED AT 1708, PATIENT NOT TOLERATING WELL, STARTED 4TH PRESSOR, BLOOD PRESSURE DROPPING TO 60/30S. FAMILY CALLED AND THEY ARE ON WAY TO COME SEE PATIENT.
--- NOTE | 2018-02-27 18:04 | NUR ---
SPOKE WITH FAMILY AND UPDATED ON 4 PRESSORS RUNNING AND PATIENT BARELY MAINTAINING BP. 65/53 BLOOD PRESURE. FAMILY WOULD LIKE COMFORT CARE AT THIS TIME. DR WASHINGTON CALLED AND UPDATED. ORDERS RECEIVED
--- NOTE | 2018-02-27 19:13 | NUR ---
PATIENT EXTUBATED AT 181, ALL PRESSORS D/C AT 181. PATIENT PRONOUNCED AT 1824 BY 2 RNS. FAMILY PRESENT AT TIME OF PASSING. MTN NOTIFIED AND DECLINED ANY DONATION.
--- NOTE | 2018-02-28 09:07 | NUR ---
O.T. UNABLE TO COMPLETE EVAL DUE TO PT.'S MEDICAL STATUS CHANGING AND THEN PT. YESTERDAY.
--- NOTE | 2018-02-28 14:12 | CON ---
[address] [address] CONSULTATION Name: JOAQUÍNPHYLLIS Domo Room: [address] IN M.R.#: [id number] Admission: 02/24/18 Attend Phys: Shine Barbosa Discharge: 02/27/18 Date of : 46 Report #: [id number] THIS REPORT FOR: //name// CC: NATHAN physician/PCP Amanuel Stevenson DATE OF SERVICE: 02/27/2018 NEPHROLOGY CONSULTATION CONSULTING PHYSICIAN: Amanuel Stevenson DO REASON FOR CONSULTATION: Acute kidney injury. HISTORY OF PRESENT ILLNESS: A 67-year-old female, who is a residential resident, who was admitted with a COPD exacerbation, abdominal pain, nausea, vomiting and diarrhea. She was admitted and eventually transferred out of the ICU and was intubated earlier today because of worsening ability to protect her airway and altered mental status. Surgery has been consulted for evaluation of colitis. Her C. diff toxin is positive. She is on vasopressors. She has received fluid boluses, but has had very poor urine output and has a climbing creatinine. Serum creatinine was 0.7 on admission, up to 2.1 now and white cell count is climbing as well. REVIEW OF SYSTEMS: Constitutional, psych, heme, eyes, ENT, respiratory, cardiac, GI, , endocrine, all negative except as documented above. PAST MEDICAL HISTORY: COPD, history of schizophrenia, depression, psychoses, anxiety, seizure disorder, DJD. SOCIAL HISTORY: Former smoker. FAMILY HISTORY: Not pertinent in this 67-year-old female. CURRENT MEDICATIONS: Reviewed. PHYSICAL EXAMINATION: VITAL SIGNS: Blood pressure is 99/49, pulse 104, respirations 35, temperature 33. GENERAL: Intubated and sedated. HEENT: Eyes closed. Ears externally normal. CARDIOVASCULAR: Tachycardic. LUNGS: Diminished. ABDOMEN: Soft. LYMPHATICS: No substantial pitting edema. NEUROLOGIC: [place] [address] CONSULTATION Name: PHYLLIS YANES Room: [address]#: [id number] Admission: 02/24/18 Attend Phys: Shine Barbosa Discharge: 02/27/18 Date of : 46 Report #: [id number] LABORATORY DATA: White cell count 40, hemoglobin 15, platelets 265. Sodium 133, potassium 5.3, chloride 107, bicarbonate 13, BUN 45, creatinine 2.1, glucose 159, calcium 7.6. ASSESSMENT: 1. Acute kidney injury in the setting of septic shock requiring Levophed. CT scan of the kidneys okay. UA noted. Creatinine on admission was 0.7, up to 2.1 on 02/27/2018 with anuria. 2. Septic shock with positive Clostridium difficile toxin. 3. Metabolic acidosis with an ABG, 7.25, 21 and 9 on 02/27/2018. 4. Hyponatremia with a sodium of 133 on 02/27/2018. 5. Hyperkalemia with a potassium of 5.3 on 02/27/2018. 6. Abnormal urinalysis. PLAN: 1. Currently on a bicarbonate drip. 2. Currently on vasopressors consisting Levophed at 12 mcg. 3. She is anuric and has a rising creatinine. I discussed with family and updated on the situation and presented options for treatment. We will medically manage and repeat stat labs. They do understand that she may need dialysis and would like to proceed with temporary dialysis should it be necessary. Again, we will check repeat stat labs early this afternoon and make a decision in which case she may need CRRT. 4. Check CK. 5. Caution vancomycin use. 6. Check labs again in the a.m. as well. Thank you for requesting my opinion in the care and management of this critically ill female. About 35 minutes of critical care time spent. <ELECTRONICALLY SIGNED> By: Andrae Rowell MD 02/28/18 1412 1201 [id number] Rowell MD /nt
--- NOTE | 2018-02-28 14:23 | CON ---
[address] [address] CONSULTATION Name: PHYLLIS YANES Room: [address] M.R.#: [id number] Admission: 02/24/18 Attend Phys: Shine Barbosa Discharge: 02/27/18 Date of : 46 Report #: [id number] THIS REPORT FOR: //name// CC: NATHAN physician/PCP Amanuel Stevenson DATE OF SERVICE: 02/27/2018 REASON FOR CONSULTATION: Respiratory failure. HISTORY OF PRESENT ILLNESS: This is a 67-year-old female patient who was admitted to this facility on 02/24/2018 through the Emergency Room when she presented with shortness of breath. Apparently, she had episodes of vomiting with increased weakness and decreased appetite. Apparently, she is a resident of long-term facility. Also, she had very bad explosive diarrhea per the records. She was admitted as a case of sepsis, hypotension and she was started on antibiotics for C. diff colitis. Her C. diff toxin came back positive; however, over the course of the last 24 hours, her blood pressure started dropping, her mental status worsened and respiratory status worsened this morning, she was on BiPAP. Her blood pressure was really low, started on vasopressors. She already has a central line placed upon hospitalization. Her mental status is really poor. The patient was evaluated initially by Dr. Stevenson and anesthesia intubated the patient. When I saw the patient in the post-intubation period, she was not responsive on the vent, ET tube in place and her blood pressure was running low. The patient did not participate in the history. During this hospitalization, the patient was evaluated by general surgery after the CT scan showed evidence of pancolitis, was suspected to be infectious in nature and as I mentioned, though she has C. diff colitis ____ UTI. HOME MEDICATIONS: She was on Colace, Lyrica, Mucinex, magnesium hydroxide, Seroquel, iron supplement, Zofran, alprazolam. PAST MEDICAL HISTORY: There is a mention of COPD, depression, schizophrenia, anxiety, seizure disorder, UTI, degenerative joint disease, anemia, lumbar stenosis. PAST SURGICAL HISTORY: Knee surgery, appendectomy, hysterectomy, breast biopsy, back surgery. SOCIAL HISTORY: She is an ex-smoker, does not smoke anymore. No history of alcohol abuse. REVIEW OF SYSTEMS: At this point, not obtainable. She is intubated [place] [address] CONSULTATION Name: PHYLLIS YANES Room: [address]#: [id number] Admission: 02/24/18 Attend Phys: Shine Barbosa Discharge: 02/27/18 Date of : 46 Report #: [id number] PHYSICAL EXAMINATION: VITAL SIGNS: Blood pressure was running in the range of 90s systolic, on vasopressin and Levophed. She has a fever, temperature is 38.3, pulse rate 100, sinus. HEENT: Head normocephalic, atraumatic. Eyes, pupils are clear, reactive to light. External ears look healthy and normal. ET tube in place with moist mucous membranes. NECK: Supple. No palpable lymph node. No palpable thyroid. Trachea central. CHEST: Air movement heard bilaterally on the vent. No wheezes, no crackles. ABDOMEN: Slightly distended. Upon deep palpation, the patient grimaced suggestive of tenderness. No masses felt. EXTREMITIES: Lower extremities, trace edema. No calf tenderness. PSYCHIATRIC: Mood and affect could not be evaluated. NEUROLOGIC: At this point, she was on the vent, received some sedation, could not be evaluated. LYMPHATIC: No palpable lymph nodes. LABORATORY DATA: Her last abdominal x-ray showed dilated small bowel. Her chest x-ray from yesterday showed poor inspiration with moderate basilar atelectasis suggestive of possible pneumonitis. Also, during this hospitalization, she had a CT scan of the abdomen and pelvis that showed diffuse circumferential wall thickening throughout the colon suggestive for colitis. The chest x-ray after intubation reviewed showing basilar infiltrate, more on the right than the left. ET tube in good position; however, official report is pending. Her white blood count jumped to 40,000 overnight, was 23.8 upon hospitalization, hemoglobin of 15 and platelets of 265. She is C. diff positive. ABGs earlier this morning 7.25/20/158. Her INR is 1.3 upon hospitalization, her ____ today is 1.7 with a creatinine of 2.1, bicarbonate 13, potassium 5.3. IMPRESSION: 1. Acute respiratory failure. 2. Metabolic acidosis. 3. Clostridium difficile colitis. 4. Colitis. 5. Acute renal failure. 6. Encephalopathy secondary to above. PLAN: At this point, the patient will be on broad spectrum antibiotics. Infectious Disease on the case managing antibiotics. I ordered ABGs followup on the vent settings. We will make adjustments based on the ABGs. We will use p.r.n. fentanyl; however, we will place her on Versed drip. She received fluid resuscitation. I did order an extra liter of fluids. I agree with the bicarbonate drip. She is on steroids. She received 1 dose this morning. We will place [place] [address] CONSULTATION Name: PHYLLIS YANES Room: [address]#: [id number] Admission: 02/24/18 Attend Phys: Shine Barbosa Discharge: 02/27/18 Date of : 46 Report #: [id number] She is on scheduled nebulization treatment. We will do a followup imaging and ABGs in the coming few days as long as she is on the vent. I had a discussion with the patient's 2 sons and 2 [id number]. They are aware that she is critically ill and prognosis is guarded. Critical care time 40 minutes. <ELECTRONICALLY SIGNED> By: Radha Whelan MD 02/28/18 1423 1203 [id number] Hannah MD /nt
== END 2018-02-27 18:24 | DRG 871 ==
LOC: M.ERS 10:27 → M.TBA-ER 11:50 → M.ICU 11:50 → M.TBA-ER 12:31 → M.ICU 13:28
PROVIDERS: Family Medicine; Internal Medicine; Physician Assistant; Specialist; ADMIT Internal Medicine
PROC: 02HV33Z Insertion of Infusion Device into Superior Vena Cava, Percutaneous Approach (ICD-10-PCS; principal; 2018-02-24)
PROC: 5A1935Z Respiratory Ventilation, Less than 24 Consecutive Hours (ICD-10-PCS; 2018-02-27)
PROC: 0BH18EZ Insertion of Endotracheal Airway into Trachea, Via Natural or Artificial Opening Endoscopic (ICD-10-PCS; 2018-02-27)
DX: A41.9 Sepsis, unspecified organism (principal); N17.0 Acute kidney failure with tubular necrosis; J96.00 Acute respiratory failure, unspecified whether with hypoxia or hypercapnia; G93.40 Encephalopathy, unspecified; R65.21 Severe sepsis with septic shock; A04.72 Enterocolitis due to Clostridium difficile, not specified as recurrent; N39.0 Urinary tract infection, site not specified; J44.1 Chronic obstructive pulmonary disease with (acute) exacerbation; E87.1 Hypo-osmolality and hyponatremia; M62.82 Rhabdomyolysis; E87.5 Hyperkalemia; M19.90 Unspecified osteoarthritis, unspecified site; M48.061 Spinal stenosis, lumbar region without neurogenic claudication; D64.9 Anemia, unspecified; F32.9 Major depressive disorder, single episode, unspecified; G40.909 Epilepsy, unspecified, not intractable, without status epilepticus; F20.9 Schizophrenia, unspecified; F41.9 Anxiety disorder, unspecified; Z90.710 Acquired absence of both cervix and uterus; Z90.49 Acquired absence of other specified parts of digestive tract; Z99.81 Dependence on supplemental oxygen; Z88.6 Allergy status to analgesic agent; Z87.891 Personal history of nicotine dependence; Z98.890 Other specified postprocedural states; Z79.2 Long term (current) use of antibiotics; Z79.82 Long term (current) use of aspirin; Z79.899 Other long term (current) drug therapy